=== PATIENT | female | born 2000 | race Caucasian/White ===

== ENCOUNTER → 2021-10-01 | Outpatient (REF) | payer OTHER ==
[2021-10-01 17:34] LABS: HEMOGLOBIN 12.1 g/dl (12.0-15.5); MEAN CORPUSCULAR HEMOGLOBIN 29.3 pg (27.0-33.0); MEAN CORPUSCULAR HGB CONC 31.8 g/dl (32.0-36.5); PLATELET COUNT, AUTOMATED 282 10^3/uL (150-450); RED BLOOD COUNT 4.13 10^6/uL (4.00-5.40); WHITE BLOOD COUNT 9.9 10^3/uL (4.0-10.0)
[2021-10-01 18:22] LABS: HCG, SERUM QUANTITATIVE 44229 MIU/ML; HEPATITIS B SURFACE ANTIGEN NEGATIVE (NEGATIVE); HEPATITIS C VIRUS ABY INDEX 0.1 INDEX (<0.8); HIV 1&2 SCREEN CENTAUR NEGATIVE (NEGATIVE)
== END ==
LOC: M LAB REF 16:15
PROVIDERS: ATTEND Obstetrics & Gynecology
DX: Z32.01 Encounter for pregnancy test, result positive (principal)

== ENCOUNTER 2021-10-12 15:55 | Emergency (ER) | payer OTHER ==
[~2021-10-12] VITALS: Ht 162.6 cm; Wt 104.5 kg
[2021-10-12 15:55] VITALS: BP 129/65
[2021-10-12] MEDS ORDERED: NITR100C2 (16:15)
[2021-10-12] MEDS ORDERED: MULTTAB20 PO (16:15)
== END 2021-10-12 17:38 | disposition home or self-care (01) ==
LOC: M ED 15:55
DX: O26.891 Other specified pregnancy related conditions, first trimester (principal); Z13.30 Encounter for screening examination for mental health and behavioral disorders, unspecified; Z79.899 Other long term (current) drug therapy; Z3A.13 13 weeks gestation of pregnancy

== ENCOUNTER → 2021-12-17 | Outpatient (REF) | payer OTHER ==
[~2021-12-17] MED LIST: MULTTAB20 PO; NITR100C2
== END ==
LOC: M LAB REF 12:21
PROVIDERS: ATTEND Advanced Practice Midwife
DX: Z34.02 Encounter for supervision of normal first pregnancy, second trimester (principal)

== ENCOUNTER 2022-03-25 12:39 | Outpatient (CLI) | payer OTHER ==
[~2022-03-25] VITALS: Ht 162.6 cm; Wt 127.2 kg
[2022-03-25 13:05] VITALS: BP 127/70
[2022-03-25] MEDS ORDERED: HOME MED LIST COMPLETE! XX SCH (13:10)
[2022-03-25] MEDS ORDERED: LR 1,000 ML IV SCH (13:25)
[2022-03-25] MEDS ORDERED: LR 1,000 ML IV ONE (13:25)
[2022-03-25] MEDS ORDERED: BETAMETHASONE SOLUSPAN 6MG/ML 5ML VIAL (J0702 PER 3MG) IM SCH (14:00)
[2022-03-25 14:04] VITALS: BP 124/84
[2022-03-25 15:27] VITALS: BP 148/93
[2022-03-25 15:30] VITALS: BP 140/84
[2022-03-25 15:45] VITALS: BP 133/76
== END 2022-03-25 16:03 | disposition home or self-care (01) ==
LOC: M LDO 12:39
PROVIDERS: ATTEND Obstetrics & Gynecology
DX: O41.03X9 Oligohydramnios, third trimester, other fetus (principal); Z3A.35 35 weeks gestation of pregnancy
CPT/HCPCS: 59025; 87081; 96360; 96361; 96372; J0702

== ENCOUNTER → 2022-03-25 | Outpatient (CLI) | payer OTHER | LOC: M WHC 09:36 | PROVIDERS: ATTEND Obstetrics & Gynecology | DX: O41.03X0 Oligohydramnios, third trimester, not applicable or unspecified (principal); Z3A.35 35 weeks gestation of pregnancy ==

== ENCOUNTER → 2022-03-25 | Outpatient (CLI) | payer OTHER | LOC: M PLALAB 09:39 | PROVIDERS: ATTEND Obstetrics & Gynecology | DX: O41.03X0 Oligohydramnios, third trimester, not applicable or unspecified (principal); Z3A.00 Weeks of gestation of pregnancy not specified ==

== ENCOUNTER 2022-04-01 07:54 | Inpatient (IN) | payer OTHER ==
[2022-04-01] VITALS (10 sets, daily range): BP systolic 100–131; BP diastolic 48–89
[~2022-04-01] VITALS: Ht 162.6 cm; Wt 128.0 kg
[2022-04-01] MEDS ORDERED: IRON65TA2 PO (09:06)
[2022-04-01 09:30] LABS: HEMATOCRIT 34.4 % (36.0-47.0); HEMOGLOBIN 10.9 g/dl (12.0-15.5); MEAN CORPUSCULAR HEMOGLOBIN 29.3 pg (27.0-33.0); MEAN CORPUSCULAR HGB CONC 31.7 g/dl (32.0-36.5); MEAN CORPUSCULAR VOLUME 92.5 fl (80.0-96.0); PLATELET COUNT, AUTOMATED 204 10^3/uL (150-450); RED BLOOD COUNT 3.72 10^6/uL (4.00-5.40); WHITE BLOOD COUNT 14.4 10^3/uL (4.0-10.0)
[2022-04-01] MEDS ORDERED: LIDOCAINE 1% MDV 20ML VIAL INFIL PRN (10:25)
[2022-04-01] MEDS ORDERED: OXYTOCIN DRIP 30 UNITS in IV 1 EA IV PRN ×4 (10:25)
[2022-04-01] MEDS ORDERED: CARBOPROST TROMETHAMINE 250 MCG/ML AMP IM PRN (10:25)
[2022-04-01] MEDS ORDERED: TRANEXAMIC ACID INJection 1,000 MG in NS 100 ML IV PRN (10:25)
[2022-04-01] MEDS ORDERED: OXYTOCIN INJ 10 UNITS/ML VIAL (J2590) IM PRN (10:25)
[2022-04-01] MEDS ORDERED: LR 1,000 ML IV SCH (10:25)
[2022-04-01] MEDS ORDERED: METHYLERGONOVINE MALEATE 0.2 MG/ML VIAL (J2210) IM PRN (10:25)
[2022-04-01] MEDS: miSOPROStol 50MCG 1/2 TABLET PO SCH ×4 (10:42→23:00)
[2022-04-01] MEDS ORDERED: LACTATED RINGER'S 1000 ML IV ONE (10:45)
[2022-04-02] VITALS (11 sets, daily range): BP systolic 111–131; BP diastolic 56–73
[2022-04-02] MEDS ORDERED: AZITHROMYCIN INJ 500 MG, VIAL MATE ADAPTER 1 EACH in NS 250 ML IV ONE (00:10)
[2022-04-02] MEDS ORDERED: ceFAZolin SOD 3 GM IV Place Holder IV ONE (00:10)
[2022-04-02] MEDS ORDERED: BICITRA 30ML SOLN UDC PO ONE (00:10)
[2022-04-02] MEDS ORDERED: ceFAZolin SOD 2 GM in IV 1 EA IV ONE (00:15)
[2022-04-02] MEDS ORDERED: ceFAZolin SOD 1 GM in D5W MINI-BAG PLUS 50 ML IV ONE (00:15)
[2022-04-02] MEDS ORDERED: MORPHINE PRES-FREE INJ 10 MG/10 ML VIAL As Ordered ONE (00:20)
[2022-04-02] MEDS ORDERED: OXYTOCIN INJ 10 UNITS/ML VIAL (J2590) As Ordered ONE ×2 (00:22→01:49)
[2022-04-02] MEDS ORDERED: METOCLOPRAMIDE INJ 10MG/2ML VIAL (J2765 PER 1) As Ordered ONE (00:26)
[2022-04-02] MEDS ORDERED: ONDANSETRON 4MG 2ML VIAL As Ordered ONE (00:27)
[2022-04-02] MEDS ORDERED: KETOROLAC 60MG 2ML VIAL As Ordered ONE (00:27)
[2022-04-02] MEDS ORDERED: ACETAMINOPHEN 1000MG 100ML IV BAG As Ordered ONE (00:28)
[2022-04-02] MEDS ORDERED: SIMETHICONE 80MG CHEW TAB PO PRN (01:10)
[2022-04-02] MEDS ORDERED: PERCOCET 5MG/325MG TAB PO PRN (01:10)
[2022-04-02] MEDS ORDERED: MOM 30ML SUSPENSION UDC PO PRN (01:10)
[2022-04-02] MEDS ORDERED: OXYTOCIN DRIP 30 UNITS in IV 1 EA IV SCH (01:10)
[2022-04-02] MEDS ORDERED: RHOGAM 300 MCG (1500 IU) INJ (J2790) IM SCH (01:10)
[2022-04-02] MEDS ORDERED: ONDANSETRON 4MG 2ML VIAL IV PRN ×2 (01:10→01:45)
[2022-04-02] MEDS ORDERED: LR 1,000 ML IV SCH (01:10)
[2022-04-02 01:40] LABS: CORD GAS ABE V -6.4; CORD GAS HCO3 V 24.7 MEQ/L; CORD GAS O2 SAT V 21.7 %; CORD GAS PCO2 V 75.5 mmHg; CORD GAS PH V 7.132 UNITS; CORD GAS PO2 V 15.1 mmHg; CORD GAS SBC V 17.6 MEQ/L
[2022-04-02 01:41] LABS: CORD GAS ABE A -8.9; CORD GAS HCO3 A 22.6 MEQ/L; CORD GAS O2 SAT A 56.1 %; CORD GAS PCO2 A 74.7 mmHg; CORD GAS PH A 7.098 UNITS; CORD GAS PO2 A 29.1 mmHg; CORD GAS SBC A 16.6 MEQ/L; CORD GAS TCO2 A 24.9 MEQ/L
[2022-04-02] MEDS ORDERED: MEPERIDINE INJ 25 MG/ML VIAL (J2175) IV PRN (01:45)
[2022-04-02] MEDS ORDERED: SLF 3 ML SYR IV SCH (01:45)
[2022-04-02] MEDS ORDERED: HYDROMORPHONE HCL 0.5 MG/ 0.5 ML SYRINGE (J1170 PER 1) IV PRN (01:45)
[2022-04-02] MEDS ORDERED: diphenhydrAMINE 50MG/ML VIAL IV PRN (01:45)
[2022-04-02] MEDS ORDERED: METOCLOPRAMIDE INJ 10MG/2ML VIAL (J2765 PER 1) IV PRN (01:45)
[2022-04-02] MEDS ORDERED: fentaNYL 100 MCG/2 ML INJECTION IV PRN (01:45)
[2022-04-02] MEDS ORDERED: NALOXONE INJ 0.4MG/1ML VIAL (J2310 PER 1MG) IV PRN ×2 (01:45)
[2022-04-02] MEDS ORDERED: oxyCODONE 5MG TAB PO PRN (01:45)
[2022-04-02] MEDS ORDERED: **NOTE PATIENT COMMENT** MISC XX SCH (01:45)
[2022-04-02] MEDS ORDERED: OXYTOCIN 30 UNITS IN 0.9% NaCl 500ML IV BAG (J2590) As Ordered ONE (02:27)
[2022-04-02] MEDS ORDERED: ENOXAPARIN 60MG/0.6ML SYRINGE (J1650 PER 10MG) SC SCH (09:00)
[2022-04-02] MEDS: PRENATAL VITAMINS CHEWABLE TABLET PO SCH (09:11)
[2022-04-02] MEDS: KETOROLAC 30 MG/ML 1ML VIAL IV SCH ×3 (09:11→19:30)
[2022-04-02] MEDS: DOCUSATE SODIUM 100MG CAPSULE PO SCH ×2 (09:12→20:59)
[2022-04-02] MEDS: ENOXAPARIN 60MG/0.6ML SYRINGE (J1650 PER 10MG) SC SCH (14:07)
[2022-04-03 02:00] VITALS: BP 129/69
[2022-04-03 06:00] VITALS: BP 129/63
[2022-04-03 07:50] LABS: HEMATOCRIT 33.2 % (36.0-47.0); HEMOGLOBIN 10.2 g/dl (12.0-15.5); MEAN CORPUSCULAR HEMOGLOBIN 29.1 pg (27.0-33.0); MEAN CORPUSCULAR HGB CONC 30.7 g/dl (32.0-36.5); MEAN CORPUSCULAR VOLUME 94.6 fl (80.0-96.0); PLATELET COUNT, AUTOMATED 185 10^3/uL (150-450); RED BLOOD COUNT 3.51 10^6/uL (4.00-5.40); WHITE BLOOD COUNT 13.9 10^3/uL (4.0-10.0)
[2022-04-03] MEDS: PERCOCET 5MG/325MG TAB PO PRN ×3 (07:56→21:05)
[2022-04-03] MEDS ORDERED: BOOSTRIX/ADACEL VACCINE (DIPHTH/PERTUSS/ACELL/TETANUS) 0.5ML SYR IM.IMMUN ONE (09:00)
[2022-04-03] MEDS: PRENATAL VITAMINS CHEWABLE TABLET PO SCH (09:11)
[2022-04-03] MEDS: DOCUSATE SODIUM 100MG CAPSULE PO SCH ×2 (09:11→21:05)
[2022-04-03 10:00] VITALS: BP 120/72
[2022-04-03] MEDS: ENOXAPARIN 60MG/0.6ML SYRINGE (J1650 PER 10MG) SC SCH (12:48)
[2022-04-03 18:00] VITALS: BP 132/77
[2022-04-03 22:00] VITALS: BP 130/85
[2022-04-04] MEDS: PERCOCET 5MG/325MG TAB PO PRN ×2 (03:11→09:30)
[2022-04-04 06:00] VITALS: BP 124/78
[2022-04-04] MEDS: PRENATAL VITAMINS CHEWABLE TABLET PO SCH (08:49)
[2022-04-04] MEDS: DOCUSATE SODIUM 100MG CAPSULE PO SCH (08:49)
[2022-04-04] MEDS ORDERED: MEASLES,MUMPS,RUBELLA VACCINE INJ (MMR-II) (90707) SC.IMMUN ONE (09:00)
[2022-04-04] MEDS ORDERED: INFLUENZA QUADRIVALENT PF VACCINE 0.5ML SYRINGE IM.IMMUN ONE (09:00)
[2022-04-04] MEDS ORDERED: COLA100C5 PO (12:05)
[2022-04-04] MEDS ORDERED: PERCOCET PO (12:05)
[2022-04-04] MEDS ORDERED: IBUP80TA PO (12:07)
== END 2022-04-04 13:11 | disposition home or self-care (01) | DRG 540 ==
LOC: M LDI 07:54 → M OBS 04-02 03:41
PROVIDERS: ADMIT Advanced Practice Midwife; ATTEND Obstetrics & Gynecology
PROC: 3E033VJ Introduction of Other Hormone into Peripheral Vein, Percutaneous Approach (ICD-10-PCS; 2022-04-01)
PROC: 10D00Z1 Extraction of Products of Conception, Low, Open Approach (ICD-10-PCS; principal; 2022-04-02 01:43)
DX: O41.03X0 Oligohydramnios, third trimester, not applicable or unspecified (principal); E66.9 Obesity, unspecified; O99.214 Obesity complicating childbirth; Z3A.36 36 weeks gestation of pregnancy; O76 Abnormality in fetal heart rate and rhythm complicating labor and delivery; Z37.0 Single live birth

== ENCOUNTER 2022-06-03 11:12 | Emergency (ER) | payer OTHER ==
[~2022-06-03] VITALS: Ht 162.6 cm; Wt 119.4 kg
[~2022-06-03 11:12] MED LIST changes: +COLA100C5 PO; +IBUP80TA PO; +IRON65TA2 PO; +PERCOCET PO
[2022-06-03 12:01] LABS: BASO % 0.4 % (0.0-1.0); EOS % 0.4 % (0.0-3.0); HEMOGLOBIN 10.7 g/dl (12.0-15.5); LYMPH # 1.8 10^3/uL (1.5-5.0); LYMPH % 16.2 % (24.0-44.0); MEAN CORPUSCULAR HEMOGLOBIN 27.4 pg (27.0-33.0); MEAN CORPUSCULAR HGB CONC 30.6 g/dl (32.0-36.5); MEAN CORPUSCULAR VOLUME 89.5 fl (80.0-96.0); MONO # 0.6 10^3/uL (0.0-0.8); MONO % 5.2 % (2.0-8.0); NEUTROPHILS # 8.8 10^3/uL (1.5-8.5); NEUTROPHILS % 77.5 % (36.0-66.0); PLATELET COUNT, AUTOMATED 305 10^3/uL (150-450); RED BLOOD COUNT 3.91 10^6/uL (4.00-5.40); WHITE BLOOD COUNT 11.4 10^3/uL (4.0-10.0)
[2022-06-03 13:00] LABS: HCG, SERUM QUALITATIVE NEGATIVE (NEGATIVE)
[2022-06-03 13:07] LABS: LIPASE 27 U/L (12-53)
[2022-06-03 13:09] LABS: BILIRUBIN,DIRECT 0.1 MG/DL (<0.4)
[2022-06-03 13:13] LABS: ALBUMIN 3.4 G/DL (3.2-5.2); ALKALINE PHOSPHATASE 95 U/L (46-116); ALT/SGPT 35 U/L (7.0-40); AST/SGOT 21 U/L (<34); BILIRUBIN,TOTAL 0.4 MG/DL (0.3-1.2); BLOOD UREA NITROGEN 11 MG/DL (9-23); CARBON DIOXIDE LEVEL 24 MMOL/L (20-31); CHLORIDE LEVEL 106 MMOL/L (98-107); CREATININE FOR GFR 0.68 MG/DL (0.55-1.30); GLOMERULAR FILTRATION RATE > 60.0 (>60); GLUCOSE, FASTING 98 MG/DL (60-100); POTASSIUM SERUM 4.5 MMOL/L (3.5-5.1); SODIUM LEVEL 138 MMOL/L (136-145); TOTAL PROTEIN 7.2 G/DL (5.7-8.2)
[2022-06-03 14:18] VITALS: BP 127/68
== END 2022-06-03 14:21 | disposition home or self-care (01) ==
LOC: M ED 11:12
DX: K83.9 Disease of biliary tract, unspecified (principal); F41.9 Anxiety disorder, unspecified; F33.1 Major depressive disorder, recurrent, moderate; Z79.891 Long term (current) use of opiate analgesic; Z79.899 Other long term (current) drug therapy